=== PATIENT | male | born 1955 | race Caucasian/White ===

== ENCOUNTER → 2021-05-17 15:36 | Outpatient (CLI) | payer OTHER, SELFPAY ==
--- NOTE | ~2021-05-17 | XR_ITS ---
EXAMINATION: XR shoulder LT min 2V DATE: 05/17/2021 15:59 INDICATION: Impingement syndrome of the left shoulder. TECHNIQUE: AP internally and externally rotated, AP oblique externally rotated and axillary views of the left shoulder were obtained. COMPARISON: None FINDINGS: Normal alignment. No fracture. Mild glenohumeral osteoarthritis. Moderate acromioclavicular osteoart hritis. Cystic change at the lesser and greater tuberosity which can be seen in the setting of rotato r cuff disease. Soft tissues are unremarkable. The visualized portions of the left lung are clear. IMPRESSION: 1. Mild glenohumeral and moderate acromioclavicular osteoarthritis. 2. Cystic change at the lesser and greater tuberosities which can be seen with rotator cuff disease. Reviewed, dictated and finalized at location B.
--- NOTE | ~2021-05-17 | XR_ITS ---
EXAMINATION: XR chest 2V DATE: 05/17/2021 15:59 INDICATION: Hypertension TECHNIQUE: frontal and lateral views of the chest were obtained. COMPARISON: None FINDINGS: Gas-filled stomach underlying mild elevated left hemidiaphragm. No focal airspace opacities, pulmonar y edema, pleural effusion or pneumothorax. The cardiomediastinal silhouette is normal. Mild thoracic spondylosis. IMPRESSION: 1. No acute cardiopulmonary disease. Reviewed, dictated and finalized at location B.
== END ==
PROVIDERS: PCP Family Medicine; Visit Provider Family Medicine
DX: M75.42 Impingement syndrome of left shoulder (principal); I10 Essential (primary) hypertension; M19.012 Primary osteoarthritis, left shoulder
CPT/HCPCS: 71046; 73030

== ENCOUNTER 2021-05-20 09:44 | Outpatient (CLI) | payer OTHER, SELFPAY ==
--- NOTE | 2021-05-20 10:07 | ECG_ITS ---
Measurements Intervals [place] Rate: 72 P: 31 [place]: 204 QRS: 60 QRSD: 93 T: 30 QT: 357 QTc: 391 Interpretive Statements SINUS RHYTHM NONSPECIFIC T-WAVE ABNORMALITY NO PREVIOUS ECG AVAILABLE FOR COMPARISON Electronically Signed On 05-20-2021 11:22:03 CDT by Wilver Rodriguez M.D.
== END 2021-05-20 09:45 | disposition home or self-care (01) ==
LOC: ANHLAB 09:46
PROVIDERS: PCP Family Medicine; Visit Provider Family Medicine
DX: I10 Essential (primary) hypertension (principal); R94.31 Abnormal electrocardiogram [ECG] [EKG]
CPT/HCPCS: 93005

== ENCOUNTER → 2021-05-27 12:17 | Outpatient (CLI) | payer OTHER, SELFPAY ==
--- NOTE | ~2021-05-27 | XR_ITS ---
EXAMINATION: XR knee RT min 4V DATE: 05/27/2021 12:33 INDICATION: Right knee pain TECHNIQUE: Four views of the right knee were obtained. COMPARISON: None. FINDINGS: Alignment is normal. No fracture or osteochondral lesion. There is mild tricompartmental os teoarthritis characterized by tiny marginal osteophytes. No joint effusion/synovitis. Soft tissues a re unremarkable. IMPRESSION: 1. Osteoarthritis without acute osseous abnormality. Reviewed, dictated and finalized at location A.
== END ==
PROVIDERS: PCP Family Medicine; Visit Provider Family Medicine
DX: M17.11 Unilateral primary osteoarthritis, right knee (principal)
CPT/HCPCS: 73564

== ENCOUNTER 2021-08-08 08:01 | Outpatient (CLI) | payer OTHER, SELFPAY ==
--- NOTE | 2021-08-22 18:29 | WPDHOMESLEEP ---
Sleep Study - Home Unattended Date of Study: 08/08/21 Ordering Provider: Adriano Emerson MD Interpreting Provider: Chandni Persaud, DO Home Sleep Study Type: Apnea Link Air Height: 1.78 m Weight: 117.934 kg Body Mass Index: 37.3 Neck Circumference (inches): 19.25 [place]: 10 Reason for Sleep Study Previously diagnosed ALIYAH. Needs to requalify for PAP Sleep History The patient is a 66-year-old male with hypertension, impingement syndrome of left shoulder, obesity, seasonal allergies, benign prostatic hyperplasia and previously diagnosed sleep apnea that had a sleep study ordered by his primary care to requalify for PAP therapy. 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 He occasionally awakens from sleep short of breath. He occasionally awakens at night with heartburn, belching or cough. He frequently snores loud enough that others complain. He frequently has trouble sleeping when he has a cold. He frequently wakes up gasping for air throughout the night. He constantly has breathing problems at night observed by himself or others. He rarely sweats excessively at night. He occasionally has heart palpitations or irregular heartbeats during the night. He occasionally falls asleep during the day but never while driving. He denies sleep paralysis, cataplexy and hypnagogic / hypnopompic hallucinations. He rarely has trouble at school or work due to sleepiness. He rarely has nightmares. He rarely remembers his dreams. He occasionally has thoughts racing through his mind. He denies feeling sad or depressed. He rarely has anxiety. He rarely has muscular tension. He denies noticing parts of his body jerk. He denies kicking during the night. He denies having crawling and aching feelings in his legs but will rarely have leg pain during the night. He denies grinding his teeth during sleep and awakening with morning jaw pain. He is rarely bothered by pain during the day and rarely awakened by pain during the night. He occasionally wakes up feeling stiff in the morning. He occasionally wakes up with sore or achy muscles. He occasionally wakes up with pain in the neck, spine or other joints. The patient goes to bed at 9:00 p.m. on both weekdays and weekends. He can fall asleep within 10 minutes. He wakes up 3-4 times throughout the night to urinate. It takes 5 minutes to 2 hours for him to fall back asleep. He wakes up at 6:30 a.m. on both weekdays and weekends. He typically gets 5-6 hours of sleep per night. He will stay in bed for 30 minutes after waking up in the morning. He currently lives with his . He does not consume any caffeinated beverages within 2 hours of bedtime. He does not engage in physical exercise before bedtime. He will watch television before falling asleep. He will take naps in the afternoon or the evening and they are refreshing. He drinks 4 caffeinated beverages per day. He drinks 1 alcoholic beverage per day. He denies tobacco and recreational drug use. [facility] Past Medical History Medical History Abnormal fasting glucose (05/27/21) Glucose 100 05/27/2021. BMI 36.0-36.9,adult BPH without obstruction/lower urinary tract symptoms Chronic pain of right knee Mild osteoarthritis on x-ray 05/27/2021. Chronic tonsillar hypertrophy Colon cancer screening screening colonoscopy 07/10/2014 with poor prep but otherwise unremarkable. Encounter for prostate cancer screening with PSA was 2.7 on 06/13/2014 . PSA 3.0 on 05/27/2021. Essential hypertension EKG 05/20/2021 with sinus rhythm with nonspecific changes Impingement syndrome of left shoulder Nocturia Obesity (BMI 30-39.9) Obstructive sleep apnea Hemoglobin 16.5 on 05/27/2021. Seasonal allergic rhinitis Sebaceous cyst right posterior shoulder Surgical History Surgical History H/O vasectomy (~1986) Family History Family History (
[2021-08-22 18:58] VITALS: BMI 37.3
--- NOTE | 2021-10-11 09:40 | SLEEP ---
PT HAS ALREADY HAD TITRATION WILL CALL PT IN 30 DAYS
== END 2021-08-09 12:39 | disposition home or self-care (01) ==
LOC: ANHCSM 08:01
PROVIDERS: PCP Family Medicine; Visit Provider Family Medicine
DX: G47.33 Obstructive sleep apnea (adult) (pediatric) (principal); G47.10 Hypersomnia, unspecified
CPT/HCPCS: 95806

== ENCOUNTER 2021-09-09 14:25 | Outpatient (CLI) | payer OTHER, SELFPAY ==
--- NOTE | 2021-09-09 14:27 | ECHO_ITS ---
Patient Info Name: Sean Ellison Age: 66 years : 1955 Gender: Male Ht: 70 in Wt: 250 lbs BSA: 2.41 m2 HR: 78 bpm BP: 154 / 75 mmHg Technical Quality: Fair Exam Date: 09/09/2021 2:57 PM Exam Location: [facility] Patient Status: Outpatient Admit Date: 09/09/2021 Staff Ordering Physician: Adriano Emerson MD Firearms Sales Associate: Roxane Hope RDCS Attending Provider: Adriano Emerson MD Referring Physician: Ki DELAROSA; Exam Type: CA echo doppler color flow Study Info Indications - central sleep apnea on sleep study Complete two-dimensional, color flow and Doppler transthoracic echocardiogram is performed. Summary 1. Complete two-dimensional, color flow and Doppler transthoracic echocardiogram is performed. 2. Left ventricular chamber dimension is normal. 3. Left ventricular systolic function is normal, estimated at 65-70%. 4. The left ventricular diastolic function is grade I diastolic dysfunction. 5. E/e' 10 is mildly elevated. 6. The mitral valve has mildly calcified annulus. 7. There is trace tricuspid valve regurgitation. 8. No pulmonary hypertension, estimated pulmonary arterial systolic pressure is 32 mmHg. Left Ventricle E/e' 10 is mildly elevated. Left ventricular chamber dimension is normal. Left ventricular systolic function is normal, estimated at 65-70%. The left ventricular diastolic function is grade I diastolic dysfunction. Right Ventricle Right ventricular chamber dimension is normal. Right ventricular systolic function is normal. Left Atria Left atrial chamber dimension is normal. Right Atria Right atrial chamber dimension is normal. Aortic Valve The aortic valve is trileaflet. There is no aortic valve stenosis. There is no aortic valve regurgitation. Pulmonic Valve There is no pulmonic regurgitation. Mitral Valve The mitral valve has mildly calcified annulus. There is no mitral valve stenosis. There is no mitral valve regurgitation. Tricuspid Valve There is trace tricuspid valve regurgitation. No pulmonary hypertension, estimated pulmonary arterial systolic pressure is 32 mmHg. Pericardium/Pleural There is no pericardial effusion. Inferior Vena Cava Normal inferior vena cava with >50% collapse upon inspiration consistent with normal right atrial pressure, 5 mmHg. Aorta The aortic root size at the sinus of Valsalva is normal. Left Ventricular Outflow Tract Name Value Normal LVOT 2D LVOT Diameter 2.1 cm LVOT Doppler LVOT Peak Gradient 4 mmHg LVOT Mean Gradient 2 mmHg LVOT VTI 21 cm LVOT VTI/AV VTI Ratio 0.8 LVOT Stroke Volume 73 ml LVOT CO 15.0 l/min LVOT CI 6.2 l/min/m2 Pulmonic Valve Name Value Normal PV Doppler --------
== END 2021-09-09 14:26 | disposition home or self-care (01) ==
LOC: ANHCARD 14:26
PROVIDERS: PCP Family Medicine; Visit Provider Family Medicine
DX: G47.31 Primary central sleep apnea (principal)
CPT/HCPCS: 93306

== ENCOUNTER 2021-09-21 10:17 | Outpatient (CLI) | payer OTHER, SELFPAY ==
--- NOTE | 2021-10-11 14:32 | WPDSLEEPSTUD ---
Sleep Study Date of Study: 09/21/21 Ordering Provider: ERIN Mosher Interpreting Physician: Chandni Persaud, Sleep Study Type: CPAP Titration Height: 1.75 m Weight: 117.934 kg Body Mass Index: 38.4 Neck Circumference (inches): 19 [place]: 10 Reason for Sleep Study The patient had an HSAT on 08/08/2021 that showed an overall AHI of 54.6 with desaturation down to 81%.?The patient had a central apnea index of 6.7 which is elevated (normal<5).?It was recommended that he have a PAP Titration study. Sleep History The patient is a 66-year-old male with hypertension, impingement syndrome of left shoulder, obesity, seasonal allergies, benign prostatic hyperplasia and previously diagnosed sleep apnea that had a sleep study ordered by his primary care to requalify for PAP therapy.? 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 He occasionally awakens from sleep short of breath.? He occasionally awakens at night with heartburn, belching or cough.? He frequently snores loud enough that others complain.? He frequently has trouble sleeping when he has a cold.? He frequently wakes up gasping for air throughout the night.? He constantly has breathing problems at night observed by himself or others.? He rarely sweats excessively at night.? He occasionally has heart palpitations or irregular heartbeats during the night.? He occasionally falls asleep during the day but never while driving.? He denies sleep paralysis, cataplexy and hypnagogic / hypnopompic hallucinations.? He rarely has trouble at school or work due to sleepiness.? He rarely has nightmares.? He rarely remembers his dreams.? He occasionally has thoughts racing through his mind.? He denies feeling sad or depressed.? He rarely has anxiety.? He rarely has muscular tension.? He denies noticing parts of his body jerk.? He denies kicking during the night.? He denies having crawling and aching feelings in his legs but will rarely have leg pain during the night.? He denies grinding his teeth during sleep and awakening with morning jaw pain.? He is rarely bothered by pain during the day and rarely awakened by pain during the night.? He occasionally wakes up feeling stiff in the morning.? He occasionally wakes up with sore or achy muscles.? He occasionally wakes up with pain in the neck, spine or other joints.? The patient goes to bed at 9:00 p.m. on both weekdays and weekends.? He can fall asleep within 10 minutes.? He wakes up 3-4 times throughout the night to urinate.? It takes 5 minutes to 2 hours for him to fall back asleep.? He wakes up at 6:30 a.m. on both weekdays and weekends.? He typically gets 5-6 hours of sleep per night.? He will stay in bed for 30 minutes after waking up in the morning.? He currently lives with his .? He does not consume any caffeinated beverages within 2 hours of bedtime.? He does not engage in physical exercise before bedtime.? He will watch television before falling asleep.? He will take naps in the afternoon or the evening and they are refreshing.? He drinks 4 caffeinated beverages per day.? He drinks 1 alcoholic beverage per day.? He denies tobacco and recreational drug use. [facility] Past Medical History Medical History Abnormal fasting glucose (05/27/21) Glucose 100 05/27/2021. BMI 36.0-36.9,adult BPH without obstruction/lower urinary tract symptoms Central sleep apnea (~08/08/21) central sleep apnea noted on home sleep study 08/08/2021 with index of 6.7. Needs echocardiogram. echocardiogram on 09/09/2021 was unremarkable with grade 1 diastolic dysfunction and trace tricuspid regurgitation. Chronic pain of right knee Mild osteoarthritis on x-ray 05/27/2021. Chronic tonsillar hypertrophy Colon cancer screening screening colonoscopy 07/10/2014 with poor prep but otherwise unremarkable. Encounter for prostate cancer screening with PSA was 2.7 on 06/13/2014 . PSA 3.0 on 05/27/2021. Essential hypertension EKG 05/21/19
[2021-10-11 14:33] VITALS: BMI 38.4
== END 2021-09-22 06:28 | disposition home or self-care (01) ==
LOC: ANHCSM 10:18
PROVIDERS: PCP Family Medicine; Visit Provider Physician Assistant
DX: G47.33 Obstructive sleep apnea (adult) (pediatric) (principal)
CPT/HCPCS: 95811

== ENCOUNTER 2021-12-17 10:10 | Emergency (ER) | payer OTHER, SELFPAY ==
[2021-12-17 10:19] VITALS: BP 138/86; PULSE 82; RESP 18; TEMP 36.4; O2SAT 97
[2021-12-17 10:20] VITALS: BP 138/86; PULSE 82; RESP 18; TEMP 36.4; O2SAT 97
--- NOTE | 2021-12-17 10:39 | ED.GENADULT ---
HPI - General Adult General Chief complaint: Skin/Abscess/Foreign Body Stated complaint: Rt Side Neck Swelling Time Seen by Provider: 12/17/21 10:26 Source: patient Mode of arrival: ambulatory Limitations: no limitations History of Present Illness HPI narrative: Patient presents today complaining of swelling to the right side of his neck that began last night and has significantly worsened through the day today. Patient was sick with cold symptoms this week, but states he is feeling better. Denies difficulty swallowing, shortness of breath. States he has had a scratchy throat for the last few days, but denies that it is painful. Reports the pain in his neck is only present with palpation and he rates this 6/10. Reports a subjective fever early in the week, but this has resolved. He has been using ice and aspirin for his neck Related Data Allergies Allergy/AdvReac Type Severity Reaction Status Date / Time No Known Allergies Allergy Unknown Verified 12/17/21 10:19 Review of Systems Review of Systems: CONSTITUTIONAL: Denies body aches, fever, chills, or sweats. EYES: Denies visual changes, redness, or discharge. ENT: Denies rhinorrhea, congestion, sore throat, or otalgia.+ neck swelling, scratchy throat CARDIOVASCULAR: Denies chest pain, palpitations, or edema. RESPIRATORY: Denies cough or dyspnea. GASTROINTESTINAL: Denies abdominal pain, nausea, vomiting, or diarrhea. GENITOURINARY: Denies dysuria or hematuria. SKIN: Denies rash, itching, or wounds. MUSCULOSKELETAL: Denies back pain, joint pain, or myalgia. NEUROLOGIC: Denies headache, numbness, tingling, or weakness. PSYCH: Denies depression or anxiety. [facility] Past Medical History Medical History Abnormal fasting glucose (05/27/21) Glucose 100 05/27/2021. Glucose 86 with hemoglobin A1c 5.4 on 11/09/2021. BMI 36.0-36.9,adult BPH without obstruction/lower urinary tract symptoms Central sleep apnea (~08/08/21) central sleep apnea noted on home sleep study 08/08/2021 with index of 6.7. Needs echocardiogram. echocardiogram on 09/09/2021 was unremarkable with grade 1 diastolic dysfunction and trace tricuspid regurgitation. Chronic pain of right knee Mild osteoarthritis on x-ray 05/27/2021. Chronic tonsillar hypertrophy Colon cancer screening screening colonoscopy 07/10/2014 with poor prep but otherwise unremarkable. Encounter for prostate cancer screening with PSA was 2.7 on 06/13/2014 . PSA 3.0 on 05/27/2021. Essential hypertension EKG 05/20/2021 with sinus rhythm with nonspecific changes Impingement syndrome of left shoulder Nocturia Obesity (BMI 30-39.9) Obstructive sleep apnea Hemoglobin 16.5 on 05/27/2021. severe ALIYAH on home sleep study 08/08/2021 with AHI of 54.6 with oxygen desaturation to 80% and central sleep apnea index of 6.7 with need for titration study. CPAP titration on 09/21/2021 with pressure setting at 13 cm of water pressure with EPR of 1 with medium resmed AirFit F20 fullface mask 10/12/2021. Seasonal allergic rhinitis Sebaceous cyst right posterior shoulder Surgical History Surgical History H/O vasectomy (~1986) Family History Family History Mother Hypertension Heart disease Cerebrovascular accident Grandparent Hypertension Heart disease Social History Social History Smoking status: Never smoker Alcohol intake: current Drinks per week: 2 Alcohol use details: bourbon Substance use: never Substance use type: does not use Gender identity (if verbalized by the patient): Male Comments At time of signature, I have reviewed and agree with nursing past medical, surgical, social and family history unless otherwise noted. Please see nursing chart for further information. There is no rel
== END 2021-12-17 10:50 | disposition short-term general hospital (02) ==
PROVIDERS: Emergency Provider Nurse Practitioner; PCP Family Medicine
DX: R22.1 Localized swelling, mass and lump, neck (principal); I10 Essential (primary) hypertension; Z98.52 Vasectomy status; G47.33 Obstructive sleep apnea (adult) (pediatric)
CPT/HCPCS: 99211; 99212; G0463

== ENCOUNTER 2021-12-17 11:05 | Emergency (ER) | payer OTHER, SELFPAY ==
--- NOTE | ~2021-12-17 | CT_ITS ---
EXAMINATION: CT soft tissue neck w con DATE: 12/17/2021 12:23 INDICATION: Right neck swelling TECHNIQUE: Computed tomography (CT) of the neck was performed with 75 mL Omnipaque-350 intravenous co ntrast. Automated exposure control and iterative reconstruction technique were employed. Exam dose: 574.04 mGy-cm total exam DLP. COMPARISON: None FINDINGS: There is asymmetric soft tissue swelling of the right submandibular gland with soft tissue infiltration of the fat around the submandibular gland. There is thickening of the right platysma and subcutaneous infiltration of the adipose tissues of the right neck and submandibular area. The parotid glands are normal and symmetric. There is asymmetric moderate soft tissue swelling of the right tonsillar area with a small calcificat ion. Normal epiglottis. No prevertebral soft tissue swelling over emphysema. No cervical mass lesion or lymphadenopathy. Fluid levels are noted in both maxillary sinuses. There is mild mucoperiosteal thickening of the left maxillary sinus and patchy soft tissue thickening the ethmoid air cells. Bilateral carotid siphon internal carotid artery calcifications. Included upper lung zones are clear. Superior mediastinum, aortic arch unremarkable. IMPRESSION: Asymmetric right mandibular gland soft tissue swelling and surrounding fat infiltration Right neck soft tissue swelling, fat infiltration, thickening of the right platysma Asymmetric mild soft tissue swelling of the right tonsillar area with small calcification Fluid levels in both maxillary sinuses Reviewed, dictated and finalized at Location [facility]. Reviewed, dictated and finalized at location A. IMPRESSION: Asymmetric right mandibular gland soft tissue swelling and surroun ding fat infiltration Right neck soft tissue swelling, fat infiltration, thickening of the right plat ysma Asymmetric mild soft tissue swelling of the right tonsillar area with small juana cification Fluid levels in both maxillary sinuses
[2021-12-17 11:09] VITALS: BP 144/82; PULSE 75; RESP 14; TEMP 36.3; O2SAT 98
--- NOTE | 2021-12-17 11:14 | ED.GENADULT ---
HPI - General Adult General Chief complaint: Neck Pain/Injury <AGA Gaines Last Filed: 12/17/21 14:26> Stated complaint: R SIDED NECK SWELLING <AGA Gaines Last Filed: 12/17/21 14:26> Time Seen by Provider: 12/17/21 11:13 <AGA Gaines Last Filed: 12/17/21 14:26> Source: patient and old records reviewed <AGA Gaines Last Filed: 12/17/21 14:26> Mode of arrival: ambulatory <AGA Gaines Last Filed: 12/17/21 14:26> Limitations: no limitations <AGA Gaines Last Filed: 12/17/21 14:26> History of Present Illness HPI narrative: Patient is a 66-year-old male who presents to the ED from urgent care with report of right-sided neck swelling. Patient reports he was ill earlier this week with flulike symptoms, fever, sore throat, cough, congestion, myalgias. He states symptoms improved on . Last night he noticed slight swelling to his right-sided neck, which became worse this morning. He went to urgent care was referred here for further evaluation. Patient states his swallowing feels abnormal, but he denies painful or difficulty swallowing. He was able to eat breakfast and drink this morning without difficulty. No difficulty breathing. No drooling. No persistent fevers, sore throat. <AGA Gaines Last Filed: 12/17/21 14:26> Related Data Allergies/adverse reactions: Allergies Allergy/AdvReac Type Severity Reaction Status Date / Time No Known Allergies Allergy Unknown Verified 12/17/21 11:32 <AGA Gaines Last Filed: 12/17/21 14:26> Review of Systems Review of Systems: CONSTITUTIONAL: Denies fever, chills, or sweats. ENT: Reports right-sided neck swelling. Denies dysphagia, odynophagia, drooling, rhinorrhea, congestion, sore throat. CARDIOVASCULAR: Denies chest pain. RESPIRATORY: Denies dyspnea. GASTROINTESTINAL: Denies abdominal pain, nausea, vomiting. <Akiko Lo PA-C - Last Filed: 12/17/21 14:26> All systems reviewed & are unremarkable except as noted in HPI and below <Akiko Lo PA-C - Last Filed: 12/17/21 14:26> REPLACED BY [facility] Past Medical History Medical History: Medical History Abnormal fasting glucose (05/27/21) Glucose 100 05/27/2021. Glucose 86 with hemoglobin A1c 5.4 on 11/09/2021. BMI 36.0-36.9,adult BPH without obstruction/lower urinary tract symptoms Central sleep apnea (~08/08/21) central sleep apnea noted on home sleep study 08/08/2021 with index of 6.7. Needs echocardiogram. echocardiogram on 09/09/2021 was unremarkable with grade 1 diastolic dysfunction and trace tricuspid regurgitation. Chronic pain of right knee Mild osteoarthritis on x-ray 05/27/2021. Chronic tonsillar hypertrophy Colon cancer screening screening colonoscopy 07/10/2014 with poor prep but otherwise unremarkable. Encounter for prostate cancer screening with PSA was 2.7 on 06/13/2014 . PSA 3.0 on 05/27/2021. Essential hypertension EKG 05/20/2021 with sinus rhythm with nonspecific changes Impingement syndrome of left shoulder Nocturia Obesity (BMI 30-39.9) Obstructive sleep apnea Hemoglobin 16.5 on 05/27/2021. severe ALIYAH on home sleep study 08/08/2021 with AHI of 54.6 with oxygen desaturation to 80% and central sleep apnea index of 6.7 with need for titration study. CPAP titration on 09/21/2021 with pressure setting at 13 cm of water pressure with EPR of 1 with medium resmed AirFit F20 fullface mask 10/12/2021. Seasonal allergic rhinitis Sebaceous cyst right posterior shoulder <Akiko Lo PA-C - Last Filed: 12/17/21 14:26> Surgical History Surgical History: Surgical History H/O vasectomy (~1986) <Akiko Lo PA-C - Last Filed: 12/17/21 14:26> Family History Family History: Fam
[2021-12-17 11:42] LABS: Basophils Percent Auto 0.7 % (0.2-1.2); Eosinophils Absolute Auto 0.2 K/mm3 (0-0.3); Eosinophils Percent Auto 3.4 % (0-4.4); Hematocrit 45.7 % (42.0-52.0); Immature Granulocyte Absolute 0.01 K/mm3 (0.00-0.031); Immature Granulocyte Percent A 0.2 % (0-0.5); Lymphocytes Absolute Auto 1.03 K/mm3 (0.9-3.2); Lymphocytes Percent Auto 23.1 % (18.3-44.2); Mean Corpuscular Hemoglobin 30.3 pg (26-34); Mean Corpuscular Volume 86.6 fl (80-100); Mean Platelet Volume 9.9 fl (7.4-10.4); Monocytes Absolute Auto 0.4 K/mm3 (0.1-0.6); Monocytes Percent Auto 8.3 % (2.6-8.5); Neutrophils Absolute Auto 2.9 K/mm3 (1.3-6.7); Neutrophils Percent Auto 64.3 % (45.5-73.1); Platelet Count Result 213 k/mm3 (150-375); Red Blood Count 5.28 M/mm3 (4.6-6.20); Red Cell Distribution Width 11.7 % (11.5-14.5); White Blood Count 4.5 K/mm3 (4.5-10.0)
[2021-12-17 11:52] LABS: Monoscreen Negative (Negative); Negative Monotest Control Negative (Negative); Positive Monotest Control Positive (Positive)
[2021-12-17 11:56] LABS: Alanine Aminotransferase 46 U/L (6-50); Albumin Level 4.3 g/dL (3.5-5.1); Alkaline Phosphatase 87 U/L (38-126); Anion Gap 11 mmol/L (8-16); Aspartate Amino Transferase 47 U/L (17-59); Blood Urea Nitrogen 14 mg/dL (9-20); Calcium 8.8 mg/dL (8.4-10.2); Carbon Dioxide 25 mmol/L (22-30); Chloride 106 mmol/L (98-107); Estimated CRCL calculation 99 ml/min; Estimated Glomerular Filt Rate > 60; Glucose 128 mg/dL (65-110); Potassium 3.2 mmol/L (3.4-5.0); Sodium 142 mmol/L (137-145)
[2021-12-17 12:41] LABS: Influenza A QL RT-PCR Positive (Negative); Influenza B QL RT-PCR Negative (Negative); SARS-CoV-2 RNA PCR Negative
[2021-12-17 13:18] VITALS: PULSE 76; RESP 16; O2SAT 96
[2021-12-17 13:42] VITALS: BP 130/73; PULSE 79; RESP 18; O2SAT 95
[2021-12-17] MEDS: AMOXICILLIN/CLAVULANATE K 875-125 MG TAB 1 TABLET PO (13:42)
[2021-12-17] MEDS: POTASSIUM CHLORIDE 20 MEQ TABLET 40 MEQ PO (14:01)
== END 2021-12-17 14:07 | disposition home or self-care (01) ==
PROVIDERS: Physician Assistant; Emergency Provider Emergency Medicine; PCP Family Medicine
DX: K11.20 Sialoadenitis, unspecified (principal); J10.1 Influenza due to other identified influenza virus with other respiratory manifestations; I10 Essential (primary) hypertension; Z20.822 Contact with and (suspected) exposure to COVID-19
CPT/HCPCS: 36415; 70491; 80053; 85025; 86308; 87636; 99284; A9270; Q9967

== ENCOUNTER 2023-03-29 06:17 | Emergency (ER) | payer OTHER, SELFPAY ==
[2023-03-29] VITALS (22 sets, daily range): BP systolic 102–188; BP diastolic 82–107; PULSE 62–84; RESP 10–23; TEMP 36.8; O2SAT 96–99
--- NOTE | ~2023-03-29 | XR_ITS ---
Portable chest x-ray Comparison: 05/17/2021 Clinical History: Chest pain Findings: Lungs are clear, without focal consolidation or pleural effusion. Cardiomediastinal silho uette is stable. Bones and soft tissues are unremarkable. Impression: Normal chest. Reviewed, dictated and finalized at [facility]. 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
--- NOTE | ~2023-03-29 | CT_ITS ---
EXAMINATION: CTA chest abdomen pelvis DATE: 03/29/2023 08:13 INDICATION: Chest pain radiating to the abdomen. TECHNIQUE: Computed tomographic angiography (CTA) of the chest, abdomen, and pelvis was performed wit h 100 mL Omnipaque-350 intravenous contrast. Automated exposure control and iterative reconstruction technique were employed. The dose-length product was 1869.73 mGy-cm. Maximum intensity projection 3D- reconstructions of the aorta and other arteries were constructed by the technologist on a separate wo rkstation. COMPARISON: None. FINDINGS: CHEST CTA: There is mild elevation of left hemidiaphragm. There is mild atelectasis bilaterally. No pleural effu avril. The heart size is normal. No pericardial effusion. There is no pulmonary embolus. The thoracic aorta is normal. There is mild thoracic spondylosis and severe cervical spondylosis. ABDOMEN AND PELVIS CTA: The liver is normal. There is a gallstone in the gallbladder, which is normal in size. The spleen, pa ncreas, adrenal glands, and kidneys are normal. The bladder is distended. The prostate is severely en larged. There is a right inguinal hernia containing fat. There is prominent fat in left inguinal annika l that may be a hernia. There are no dilated loops of bowel. There is a large volume of stool in the colon. The appendix is not visualized. There are no pathologically enlarged lymph nodes. There is no free intraperitoneal fluid. The abdominal aorta is normal. There is no significant stenosis of celiac axis, superior mesenteric artery, the renal arteries, or inferior mesenteric artery. There is severe lumbar spondylosis. IMPRESSION: 1. Normal aorta. 2. Cholelithiasis. Reviewed, dictated and finalized at location A. CTOR FRAUD
--- NOTE | 2023-03-29 06:19 | ECG_ITS ---
Measurements Intervals [place] Rate: 72 P: 34 MS: 204 QRS: 58 QRSD: 97 T: 43 QT: 370 QTc: 405 Interpretive Statements SINUS RHYTHM INCOMPLETE RIGHT BUNDLE BRANCH BLOCK [90+ ms QRS DURATION, TERMINAL R IN V1/V2, 40+ ms S IN I/aVL/V4/V5/V6] COMPARED TO ECG 05/20/2021 10:26:00 INCOMPLETE RIGHT BUNDLE-BRANCH BLOCK NOW PRESENT Electronically Signed On 03-29-2023 12:39:36 BUSINESS MANAGEMENT INTERN by Odessa Delacruz M.D.
[2023-03-29] MEDS: ASPIRIN 81 MG CHEWABLE TABLET 324 MG PO (06:36)
[2023-03-29 06:41] LABS: Basophils Percent Auto 0.6 % (0.2-1.2); Eosinophils Absolute Auto 0.1 K/mm3 (0-0.3); Eosinophils Percent Auto 1.1 % (0-4.4); Hematocrit 48.6 % (42.0-52.0); Hemoglobin 17.2 g/dL (14.0-18.0); Immature Granulocyte Absolute 0.04 K/mm3 (0.00-0.031); Immature Granulocyte Percent A 0.6 % (0-0.5); Lymphocytes Absolute Auto 1.04 K/mm3 (0.9-3.2); Lymphocytes Percent Auto 14.5 % (18.3-44.2); Mean Corpuscular HGB Conc 35.4 g/dl (32-36); Mean Corpuscular Hemoglobin 30.8 pg (26-34); Mean Corpuscular Volume 86.9 fl (80-100); Mean Platelet Volume 9.7 fl (7.4-10.4); Monocytes Absolute Auto 0.5 K/mm3 (0.1-0.6); Neutrophils Absolute Auto 5.5 K/mm3 (1.3-6.7); Neutrophils Percent Auto 76.2 % (45.5-73.1); Platelet Count Result 195 k/mm3 (150-375); Red Blood Count 5.59 M/mm3 (4.6-6.20); Red Cell Distribution Width 11.9 % (11.5-14.5); White Blood Count 7.2 K/mm3 (4.5-10.0)
[2023-03-29 06:56] LABS: Partial Thromboplastin Time 28.7 SECONDS (22.3-36.8)
--- NOTE | 2023-03-29 07:00 | ED.CHESTPAIN ---
HPI - Chest Pain General Chief Complaint: Chest Pain Stated Complaint: chest pain Time Seen by Provider: 03/29/23 06:55 History of Present Illness HPI narrative: Patient is a 68-year-old male with history of hypertension, acid reflux, BPH here with chest pain. He states that around 3:00 a.m. in the morning he began having some substernal chest pain which radiated into his abdomen. Pain is at a similar location from his prior acid reflux but much worse and persistent. He notes that he took a couple pills of an antacid which did not help. He denies any associated dizziness, light headedness, nausea, shortness of breath. He started having an associated headache around 5:30 AM. All symptoms have significantly improved since. No personal cardiac history. Non smoker. Related Data Allergies Allergy/AdvReac Type Severity Reaction Status Date / Time No Known Allergies Allergy Unknown Verified 03/29/23 06:29 Review of Systems Review of Systems: All systems reviewed & are unremarkable except as noted in HPI and below PMFSH Past Medical History Medical History (Updated 03/29/23 @ 10:10 by Delphine Lauren MD) Abnormal fasting glucose (05/27/21) Glucose 100 05/27/2021. Glucose 86 with hemoglobin A1c 5.4 on 11/09/2021. Glucose 110 with hemoglobin A1c 5.5 on 11/17/2022. BMI 36.0-36.9,adult BPH without obstruction/lower urinary tract symptoms Central sleep apnea (~08/08/21) central sleep apnea noted on home sleep study 08/08/2021 with index of 6.7. Needs echocardiogram. echocardiogram on 09/09/2021 was unremarkable with grade 1 diastolic dysfunction and trace tricuspid regurgitation. Chronic pain of right knee Mild osteoarthritis on x-ray 05/27/2021. Chronic tonsillar hypertrophy Colon cancer screening screening colonoscopy 07/10/2014 with poor prep but otherwise unremarkable. Encounter for prostate cancer screening with PSA was 2.7 on 06/13/2014 . PSA 3.0 on 05/27/2021. PSA 2.92 on 11/17/2022. Essential hypertension EKG 05/20/2021 with sinus rhythm with nonspecific changes Impingement syndrome of left shoulder Male erectile dysfunction, unspecified (~02/2022) Testosterone 483 with free testosterone 55.2 on 11/17/2022. Nocturia Obesity (BMI 30-39.9) Obstructive sleep apnea Hemoglobin 16.5 on 05/27/2021. severe ALIYAH on home sleep study 08/08/2021 with AHI of 54.6 with oxygen desaturation to 80% and central sleep apnea index of 6.7 with need for titration study. CPAP titration on 09/21/2021 with pressure setting at 13 cm of water pressure with EPR of 1 with medium resmed AirFit F20 fullface mask 10/12/2021. Seasonal allergic rhinitis Sebaceous cyst right posterior shoulder Surgical History Surgical History H/O vasectomy (~1986) Family History Family History Mother Hypertension Heart disease Cerebrovascular accident Grandparent Hypertension Heart disease Social History Social History Smoking status: Never smoker Alcohol intake: current Drinks per week: 2 Alcohol use details: bourbon Substance use: never Substance use type: does not use Lack of Transportation: No Lack of Food: Never True Current Housing: I Have Housing Concerned About Future Housing: No Difficulty Paying Gas/Electric Bills: No Difficulty Paying for Meds: No Currently Unemployed: No Education: Master's Degree or Higher Difficulty w/ Childcare or Family Care: No Living arrangements: with family Occupation/Education: retired Gender identity (if verbalized by the patient): Male Exam Narrative: GENERAL: Well-appearing, well-nourished, and in no acute distress. HEAD: Normocephalic, atraumatic. EYES: PERRLA and EOMI. ENT: Nares clear. Mucous membranes moist. NECK: Supple. CHEST: Clear to auscultation. No respiratory distress. HEART: Regular rate and rhy
[2023-03-29 07:01] LABS: Alanine Aminotransferase 28 U/L (6-50); Albumin Level 4.6 g/dL (3.5-5.1); Alkaline Phosphatase 80 U/L (38-126); Anion Gap 6 mmol/L (8-16); Aspartate Amino Transferase 33 U/L (17-59); Blood Urea Nitrogen 19 mg/dL (9-20); Calcium 9.4 mg/dL (8.4-10.2); Carbon Dioxide 26 mmol/L (22-30); Chloride 106 mmol/L (98-107); Estimated CRCL calculation 103 ml/min; Estimated Glomerular Filt Rate > 60; Glucose 135 mg/dL (65-110); Lipase 61 U/L (23-300); Potassium 3.7 mmol/L (3.4-5.0); Sodium 138 mmol/L (137-145)
[2023-03-29 07:13] LABS: Troponin I < 0.012 ng/mL (0.000-0.034)
[2023-03-29] MEDS: PANTOPRAZOLE SODIUM IV 40 MG VIAL IV PUSH (08:14)
[2023-03-29] MEDS: ACETAMINOPHEN 325 MG TABLET 650 MG PO (09:11)
--- NOTE | 2023-03-29 09:30 | ECG_ITS ---
Measurements Intervals Aline Rate: 60 P: 14 MI: 197 QRS: 44 QRSD: 108 T: 9 QT: 394 QTc: 394 Interpretive Statements SINUS RHYTHM WITH OCCASIONAL VENTRICULAR PREMATURE COMPLEXES INCOMPLETE RIGHT BUNDLE BRANCH BLOCK [90+ ms QRS DURATION, TERMINAL R IN V1/V2, 40+ ms S IN I/aVL/V4/V5/V6] NONSPECIFIC T-WAVE ABNORMALITY COMPARED TO ECG 03/29/2023 06:25:06 NO SIGNIFICANT CHANGES Electronically Signed On 03-29-2023 12:42:03 [employer] by Odessa Delacruz M.D.
[2023-03-29 09:56] LABS: Troponin I < 0.012 ng/mL (0.000-0.034)
== END 2023-03-29 10:53 | disposition home or self-care (01) ==
PROVIDERS: Student in an Organized Health Care Education/Training Program; Emergency Provider Student in an Organized Health Care Education/Training Program; PCP Family Medicine
DX: R07.2 Precordial pain (principal); I10 Essential (primary) hypertension; K21.9 Gastro-esophageal reflux disease without esophagitis; N40.0 Benign prostatic hyperplasia without lower urinary tract symptoms; G47.31 Primary central sleep apnea; E66.9 Obesity, unspecified; Z68.35 Body mass index [BMI] 35.0-35.9, adult; K80.20 Calculus of gallbladder without cholecystitis without obstruction; I49.3 Ventricular premature depolarization; I45.10 Unspecified right bundle-branch block; R94.31 Abnormal electrocardiogram [ECG] [EKG]
CPT/HCPCS: 36415; 71045; 71275; 74174; 80053; 83690; 84484; 85025; 85610; 85730; 93005; 96374; 99284; A9270; C9113; Q9967

== ENCOUNTER 2023-05-07 08:26 | Outpatient (CLI) | payer OTHER, SELFPAY ==
--- NOTE | 2023-05-07 08:44 | EST_ITS ---
Patient Info Name: Sean Ellison Age: 68 years : 1955 Gender: Male Ht: 70 in Wt: 245 lbs BSA: 2.38 m2 HR: 61 bpm BP: 152 / 85 mmHg Heart Rhythm: Sinus Rhythm Exam Date: 05/07/2023 9:00 AM Exam Location: Echo Lab Patient Status: Outpatient Admit Date: 05/07/2023 Staff Ordering Physician: Adriano Emerson MD Attending Provider: Adriano Emerson MD Exercise Technologist: Sis Woods CT Exercise Physician: Austin Cannon DO Exam Type: CA stress test treadmill Study Info Indications R07.89 - Other chest pain A treadmill exercise stress test was performed. Summary 1. 1. Negative Ronald exercise stress test for ischemic ST changes by ECG criteria. 2. 2. Reduced functional capacity, achieving 7.4 METs of workload. 3. 3. Baseline hypertension. 4. 4. Appropriate HR response to exercise. 5. 5. Appropriate HR recovery at 1 minute post exercise. 6. 6. No imaging with stress testing. 7. 7. Patient informed of the above results. Protocol: Ronald Stress ECG Details Stage: REST Duration (min): 1 min : 24 sec Speed (mph): 0.0 Grade (%): 0 HR (bpm): 60 SBP (mmHg): 152 DBP (mmHg): 85 METS: --- Stage: REST Duration (min): 6 min : 7 sec Speed (mph): 0.0 Grade (%): 0 HR (bpm): 63 SBP (mmHg): 152 DBP (mmHg): 85 METS: --- Stage: STAGE 1 Duration (min): 1 min : 0 sec Speed (mph): 1.7 Grade (%): 10 HR (bpm): 96 SBP (mmHg): 152 DBP (mmHg): 85 METS: --- Stage: STAGE 1 Duration (min): 2 min : 0 sec Speed (mph): 1.7 Grade (%): 10 HR (bpm): 107 SBP (mmHg): 152 DBP (mmHg): 85 METS: --- Stage: STAGE 1 Duration (min): 3 min : 0 sec Speed (mph): 1.7 Grade (%): 10 HR (bpm): 112 SBP (mmHg): 154 DBP (mmHg): 58 METS: --- Stage: STAGE 2 Duration (min): 1 min : 0 sec Speed (mph): 2.5 Grade (%): 12 HR (bpm): 122 SBP (mmHg): 154 DBP (mmHg): 58 METS: --- Stage: STAGE 2 Duration (min): 2 min : 0 sec Speed (mph): 2.5 Grade (%): 12 HR (bpm): 126 SBP (mmHg): 186 DBP (mmHg): 65 METS: --- Stage: STAGE 2 Duration (min): 3 min : 0 sec Speed (mph): 2.5 Grade (%): 12 HR (bpm): 128 SBP (mmHg): 186 DBP (mmHg): 65 METS: --- Stage: STAGE 3 Duration (min): 0 min : 15 sec Speed (mph): 3.4 Grade (%): 14 HR (bpm): 131 SBP (mmHg): 186 DBP (mmHg): 65 METS: --- Stage: RECOVERY Duration (min): 0 min : 44 sec Speed (mph): 0.0 Grade (%): 0 HR (bpm): 113 SBP (mmHg): 187 DBP (mmHg): 86 METS: --- Stage: RECOVERY Duration (min): 1 min : 44 sec Speed (mph): 0.0 Grade (%): 0 HR (bpm): 90 SBP (mmHg): 187 DBP (mmHg): 86 METS: --- Stage: RECOVERY Duration (min): 2 min : 44 sec Speed (mph): 0.0 Grade (%): 0 HR (bpm): 79 SBP (mmHg): 187 DBP (mmHg): 86 METS: --- Stage: RECOVERY Duration (min): 3 min : 33 sec Speed (mph): 0.0 Grade (%): 0 HR (bpm): 79 SBP (mmHg
== END 2023-05-07 08:27 | disposition home or self-care (01) ==
PROVIDERS: PCP Family Medicine; Visit Provider Family Medicine
DX: R07.89 Other chest pain (principal)
CPT/HCPCS: 93017

== ENCOUNTER → 2023-09-24 11:03 | Outpatient (CLI) | payer OTHER, SELFPAY ==
--- NOTE | ~2023-09-24 | XR_ITS ---
EXAMINATION: XR hand LT min 3V DATE: 09/24/2023 11:21 INDICATION: Pain in left fingers. TECHNIQUE: 3 views of left hand were obtained. COMPARISON: None. FINDINGS: Bone alignment is normal. No fracture. There is mild osteoarthritis of first carpometacarpa l joint and some of the interphalangeal joints and metacarpophalangeal joints. There is moderate oste oarthritis of first interphalangeal joint and second-fifth distal interphalangeal joints. IMPRESSION: 1. Polyarticular osteoarthritis. Reviewed, dictated and finalized at location A.
--- NOTE | ~2023-09-24 | XR_ITS ---
EXAMINATION: XR shoulder LT min 2V DATE: 09/24/2023 11:21 INDICATION: Left shoulder primary osteoarthritis. TECHNIQUE: 4 views of left shoulder were obtained. COMPARISON: Left shoulder radiographs 05/17/2021 FINDINGS: Bone alignment is normal. No fracture. There is mild osteoarthritis of glenohumeral joint a nd severe osteoarthritis of acromioclavicular joint. IMPRESSION: 1. Polyarticular osteoarthritis. Reviewed, dictated and finalized at location A.
== END ==
LOC: EXPTROY 11:05
PROVIDERS: PCP Family Medicine; Visit Provider Family Medicine
DX: M19.042 Primary osteoarthritis, left hand (principal); M19.012 Primary osteoarthritis, left shoulder
CPT/HCPCS: 73030; 73130